=== PATIENT | female | born 1960 | race Caucasian/White ===

== ENCOUNTER → 2021-02-28 | Outpatient (CLI) | payer BC | END | disposition home or self-care (01) | LOC: CFH 12:04 | DX: R92.8 Other abnormal and inconclusive findings on diagnostic imaging of breast (principal) | CPT/HCPCS: 77065 ==

== ENCOUNTER → 2021-03-28 | Outpatient (CLI) | payer BC ==
[~2021-03-28] MED LIST: LIDOCAINE 1%, 20ML ONE; LIDOCAINE 1%-EPI 1:100K, 20ML ONE; SODIUM BICARBONATE 4.2%, 5ML ONE
== END | disposition home or self-care (01) ==
LOC: CFH 08:09
DX: R92.0 Mammographic microcalcification found on diagnostic imaging of breast (principal); C50.111 Malignant neoplasm of central portion of right female breast; Z17.0 Estrogen receptor positive status [ER+]
CPT/HCPCS: 19081; 77065; 88305; 88341; 88342; 88360; J3490

== ENCOUNTER → 2021-04-27 | Outpatient (CLI) | payer BC ==
[~2021-04-27] MED LIST changes: +Benadryl PO; +CETI-158 PO; -LIDOCAINE 1%, 20ML ONE; -LIDOCAINE 1%-EPI 1:100K, 20ML ONE; -SODIUM BICARBONATE 4.2%, 5ML ONE; +Sudafed PO; +VITA1TAB19 PO; +Vitamin C PO
== END | disposition home or self-care (01) ==
LOC: STAR 14:23
PROVIDERS: ATTEND Surgery
DX: Z01.812 Encounter for preprocedural laboratory examination (principal); Z20.822 Contact with and (suspected) exposure to COVID-19; C50.811 Malignant neoplasm of overlapping sites of right female breast
CPT/HCPCS: 93005; U0003; U0005

== ENCOUNTER 2021-05-03 09:00 | Day surgery (SDC) | payer BC ==
[~2021-05-03] VITALS: Ht 170.2 cm; Wt 60.0 kg
[2021-05-03] MEDS ORDERED: CHLORHEXIDINE 15 ML UDC PO ONE (10:30)
[2021-05-03] MEDS ORDERED: LACTATED RINGERS 1,000 ML IV SCH (10:30)
[2021-05-03] MEDS ORDERED: CHLORHEXIDINE 15 ML UDC ONE (10:39)
[2021-05-03] MEDS ORDERED: ISOSULFAN BLUE 10 MG/ML, 5ML IV ONE (10:49)
[2021-05-03] MEDS ORDERED: EPINEPHRINE 1 MG/ML, 1ML ONE (10:49)
[2021-05-03] MEDS ORDERED: BUPIVACAINE/PF 0.5% ONE (10:49)
[2021-05-03] MEDS ORDERED: MIDAZOLAM 1 MG/ML, 2ML ONE (10:55)
[2021-05-03] MEDS ORDERED: HYDROmorphone 1 MG/ML, 1ML INJ ONE (10:57)
[2021-05-03] MEDS ORDERED: FENTANYL PF 100 MCG/2ML ONE (10:57)
[2021-05-03] MEDS ORDERED: ACETAMINOPHEN 325 MG TABLET PO PRN (11:30)
[2021-05-03] MEDS ORDERED: HYDROmorphone 1 MG/ML, 1ML INJ IVPush PRN (11:30)
[2021-05-03] MEDS ORDERED: CEFAZOLIN 1,000 MG ONE (11:30)
[2021-05-03] MEDS ORDERED: FENTANYL PF 100 MCG/2ML IV PRN (11:30)
[2021-05-03] MEDS ORDERED: hydrALAzine 20 MG/ML, 1ML IV PRN (11:30)
[2021-05-03] MEDS ORDERED: DEXAMETHASONE 4 MG/ML, 1ML ONE (11:30)
[2021-05-03] MEDS ORDERED: ONDANSETRON 2MG/ML, 2ML IVPush PRN (11:30)
[2021-05-03] MEDS ORDERED: KETOROLAC 30 MG/1 ML IV PRN (11:30)
[2021-05-03] MEDS ORDERED: LABETALOL 5MG/ML, 20ML IV PRN (11:30)
[2021-05-03] MEDS ORDERED: MEPERIDINE/PF 25MG/0.5ML IVPush PRN (11:30)
[2021-05-03] MEDS ORDERED: METOCLOPRAMIDE 5 MG/ML, 2ML IVPush PRN (11:30)
[2021-05-03] MEDS ORDERED: PROMETHAZINE 25 MG/ML, 1ML IVPush PRN (11:30)
[2021-05-03] MEDS ORDERED: OXYcodone 5 MG/5 ML ORAL.SOL UDC PO PRN (11:30)
[2021-05-03] MEDS ORDERED: PHENYLEPHRINE 10 MG/ML ONE (11:30)
[2021-05-03] MEDS ORDERED: HALOPERIDOL 5 MG/ML IV PRN (11:30)
[2021-05-03] MEDS ORDERED: PROPOFOL 10 MG/ML, 20ML ONE (11:30)
[2021-05-03] MEDS ORDERED: EPHEDRINE 50 MG/ML, 1ML IVPush PRN (11:30)
[2021-05-03] MEDS ORDERED: DIPHENHYDRAMINE 50 MG/ML, 1ML IVPush PRN (11:30)
[2021-05-03] MEDS ORDERED: ONDANSETRON 2MG/ML, 2ML ONE (11:30)
[2021-05-03] MEDS ORDERED: DIAZEPAM 5 MG/ML, 2ML IVPush PRN (11:30)
[2021-05-03] MEDS ORDERED: METOPROLOL 1 MG/ML, 5ML IV PRN (11:30)
[2021-05-03] MEDS ORDERED: SUCCINYLCHOLINE 20 MG/ML, 10ML ONE (11:30)
[2021-05-03] MEDS ORDERED: LIDOCAINE 1%-EPI 1:100K, 20ML ONE (11:48)
[2021-05-03] MEDS ORDERED: LIDOCAINE 1%, 20ML ONE (11:48)
[2021-05-03] MEDS ORDERED: SODIUM BICARBONATE 4.2%, 5ML ONE (11:48)
[2021-05-03] MEDS ORDERED: ONDA4TAB7 PO (13:56)
[2021-05-03] MEDS ORDERED: HYDR-2214 PO (13:56)
== END 2021-05-03 15:55 | disposition home or self-care (01) ==
LOC: CFH 09:00 → EDSTATUS 11:30 → OUT 15:55
PROVIDERS: ATTEND Surgery
DX: C50.211 Malignant neoplasm of upper-inner quadrant of right female breast (principal); F06.4 Anxiety disorder due to known physiological condition; F12.90 Cannabis use, unspecified, uncomplicated; Z17.0 Estrogen receptor positive status [ER+]; Z79.899 Other long term (current) drug therapy; Z80.3 Family history of malignant neoplasm of breast; Z80.8 Family history of malignant neoplasm of other organs or systems
CPT/HCPCS: 19281; 19301; 19316; 38525; 38792; 76098; 88305; 88307; 88329; 88333; A9541; C1729; J0330; J0690; J1100; J1170; J2250; J2370; J2405; J2704; J3010; J7120; J0171

== ENCOUNTER → 2021-05-17 | Outpatient (CLI) | payer BC ==
[~2021-05-17] MED LIST changes: +HYDR-2214 PO; +ONDA4TAB7 PO
== END | disposition home or self-care (01) ==
LOC: CVU 09:43
PROVIDERS: ATTEND Internal Medicine Hematology & Oncology
DX: C50.811 Malignant neoplasm of overlapping sites of right female breast (principal)
CPT/HCPCS: 93306; 93356

== ENCOUNTER 2021-05-25 08:27 | Outpatient (CLI) | payer BC | END 2021-05-25 23:59 | disposition home or self-care (01) | LOC: ROC 08:27 | PROVIDERS: ATTEND Radiology Radiation Oncology | DX: C50.111 Malignant neoplasm of central portion of right female breast (principal); Z17.0 Estrogen receptor positive status [ER+]; Z79.899 Other long term (current) drug therapy | CPT/HCPCS: 99214; G0463 ==

== ENCOUNTER → 2021-06-04 | Outpatient (CLI) | payer BC | END | disposition home or self-care (01) | LOC: RAD 10:17 | PROVIDERS: ATTEND Internal Medicine Hematology & Oncology | DX: C50.811 Malignant neoplasm of overlapping sites of right female breast (principal) | CPT/HCPCS: 76700; 78306; A9503 ==